=== PATIENT | male | born 1990 | race African-American/Black ===

== ENCOUNTER 2017-11-12 21:35 | Emergency (ER) | payer SELFPAY ==
[~2017-11-12] VITALS: Ht 177.8 cm; Wt 88.5 kg
[2017-11-12 21:41] VITALS: BP 122/64
--- NOTE | 2017-11-12 21:42 | Emergency Room Report ---
History of Present Illness General Chief Complaint: Medical Clearance Source: Patient Present Illness HPI Is a 27-year-old male with a history of asthma with infrequent attack. He was brought in by police for medical clearance. He was arty and jelled and said that he has asthma and wanted to be checked out. He has no other complaint. He is not short of breath. Has no wheezing. No fever chills but no nausea no vomiting. Rarely has to use his inhaler. Allergies: Coded Allergies: No Known Allergies (Unverified , 11/12/17) Patient History Past Medical History: see triage record, old chart reviewed, asthma Past Surgical History: none Pertinent Family History: none Social History: Denies: smoking Immunizations: other Reviewed Nursing Documentation: PMH: Agreed; PSxH: Agreed Review of Systems Eye: Denies: eye pain, blurred vision ENT: Denies: ear pain, nose congestion, throat swelling Respiratory: Denies: cough, shortness of breath Cardiovascular: Denies: chest pain, palpitations Gastrointestinal: Denies: abdominal pain, diarrhea, nausea, vomiting Musculoskeletal: Denies: back pain, joint pain Skin: Denies: rash Neurological: Denies: headache, numbness Endocrine: Denies: increased thirst, increased urine Hematologic/Lymphatic: Denies: easy bruising All Other Systems: negative except mentioned in HPI Physical Exam Vital Signs Date Time Temp Pulse Resp B/P (MAP) Pulse Ox O2 Delivery O2 Flow Rate FiO2 11/12/17 21:37 98.4 88 16 122/64 97 Room Air 98.4 vitals normal Sp02 EP Interpretation: reviewed, normal General Appearance: well appearing, no apparent distress, alert Head: normocephalic, atraumatic Eyes: bilateral eye PERRL, bilateral eye EOMI ENT: hearing grossly normal, normal pharynx Neck: full range of motion, supple, no meningismus Respiratory: chest non-tender, lungs clear, normal breath sounds Cardiovascular #1: regular rate, rhythm, no murmur Gastrointestinal: normal bowel sounds, non tender, no mass, no organomegaly, no bruit, non-distended Musculoskeletal: back normal, gait/station normal, normal range of motion Psychiatric: mood/affect normal Skin: warm/dry Medical Decision Making Diagnostic Impression: Primary Impression: Examination, medicolegal reason ER Course Patient here for medical clearance. He has a history of asthma but is well- controlled. He is in no respiratory distress or has any wheezing. I see no need for any further workup or treatment. We'll discharge the police. Last Vital Signs Date Time Temp Pulse Resp B/P (MAP) Pulse Ox O2 Delivery O2 Flow Rate FiO2 11/12/17 21:37 98.4 88 16 122/64 97 Room Air 98.4 Status: unchanged Disposition: D/C TO LAW ENFORCEMENT IN [facility] Condition: Stable Additional Instructions: Follow-up with your doctor in 7 days as needed. Return if symptom worsen. MARITA DUVALL M.D. Nov 12, 2017 21:41
== END 2017-11-12 21:55 ==
LOC: EMR 21:48
DX: Z02.89 Encounter for other administrative examinations (principal); J45.909 Unspecified asthma, uncomplicated
CPT/HCPCS: 99283